=== PATIENT | male | born 1985 | race African-American/Black ===

== ENCOUNTER 2022-10-29 21:11 | Emergency (ER) | payer BC ==
[~2022-10-29] VITALS: Ht 177.8 cm; Wt 113.4 kg
== END 2022-10-29 23:48 | disposition home or self-care (01) ==
LOC: ED 21:11
DX: S92.412A Displaced fracture of proximal phalanx of left great toe, initial encounter for closed fracture (principal); S91.312A Laceration without foreign body, left foot, initial encounter; I10 Essential (primary) hypertension; W20.8XXA Other cause of strike by thrown, projected or falling object, initial encounter; Y93.89 Activity, other specified; Y92.009 Unspecified place in unspecified non-institutional (private) residence as the place of occurrence of the external cause; Y99.8 Other external cause status